=== PATIENT | male | born 1985 | race Caucasian/White ===

== ENCOUNTER 2019-06-27 22:31 | Emergency (ER) | payer MEDICAID ==
[~2019-06-27] VITALS: Ht 182.9 cm; Wt 95.3 kg
[2019-06-27 22:39] VITALS: Ht 182.9 cm; Wt 95.3 kg
[2019-06-27] MEDS ORDERED: XANAX1 MG PO (22:41)
[2019-06-27] MEDS ORDERED: BUPRENORPHIN-N1 EACH SL (22:48)
[2019-06-27 22:49] LABS: APPEARANCE CLEAR (CLEAR); BILIRUBIN NEGATIVE (NEGATIVE); COLOR YELLOW (YELLOW); GLUCOSE NEGATIVE (NEGATIVE); KETONE NEGATIVE (NEGATIVE); NITRITE NEGATIVE (NEGATIVE); PROTEIN NEGATIVE (NEGATIVE); UROBILINOGEN NORMAL (NORMAL)
[2019-06-27] MEDS ORDERED: CYMBALTA30 MG PO (22:49)
[2019-06-27] MEDS ORDERED: RISPERDAL4 MG PO (22:49)
[2019-06-27] MEDS ORDERED: DEPAKOTE ER250 MG PO (22:49)
--- NOTE | 2019-06-27 22:58 | NUR ---
DR. JONES NOTIFIED AND SITTER ORDERED. SITTER AT BEDSIDE. NOTIFIED CHARGE NURSE AND ATTENDING IN REGARDS TO ASSESSMENT FINDINGS. RESOURCES GIVE TO PT AND SAFETY PLAN INITIATED.
[2019-06-27 23:00] LABS: UDS - AMPHET POSITIVE QUAL (NEGATIVE); UDS - BARB NEGATIVE QUAL (NEGATIVE); UDS - BENZO POSITIVE QUAL (NEGATIVE); UDS - COCAINE NEGATIVE QUAL (NEGATIVE); UDS - OPIATE NEGATIVE QUAL (NEGATIVE); UDS - PCP NEGATIVE QUAL (NEGATIVE); UDS - THC POSITIVE QUAL (NEGATIVE)
[2019-06-27 23:07] LABS: BASOPHILS 0.7 % (0-2); EOSINOPHILS 9.4 % (0-7); HEMATOCRIT 43.7 % (42.0-54.0); HEMOGLOBIN 14.8 g/dL (13.5-17.5); IMMATURE GRANULOCYTES 0.3 % (0-5); LYMPHOCYTES 32.6 % (15-50); MCH 31.6 pg (26.0-34.0); MCHC 33.9 g/dL (31.0-37.0); MCV 93.4 fL (80.0-100.0); MEAN PLATELET VOLUME 11.1 fL (7.4-10.4); MONOCYTES 10.4 % (2-11); NEUTROPHILS 46.6 % (40-80); PLATELET COUNT 244 10x3/uL (130-400); RBC 4.68 10x6/uL (4.20-6.10); RDW 12.9 % (11.5-14.5); WBC 9.1 10x3/uL (4.8-10.8)
[2019-06-27 23:13] LABS: CALC OSMOLALITY 285 mosm/kg (275-300); CALCIUM 9.1 mg/dL (8.5-10.1); CARBON DIOXIDE 29.9 mmol/L (21.0-32.0); CHLORIDE - SERUM 105 mmol/L (98-107); CREATININE - SERUM 0.9 mg/dL (0.6-1.3); GLUCOSE 101 mg/dL (74-106); POTASSIUM - SERUM 3.4 mmol/L (3.5-5.1); SODIUM 143 mmol/L (136-145); UREA NITROGEN 15 mg/dL (7-18); eGFR NON AFRICAN AMERICAN > 90 mL/min (90-120)
[2019-06-27 23:19] LABS: ALBUMIN 3.7 g/dL (3.4-5.0); ALKALINE PHOSPHATASE 112 U/L (46-116); ALT (SGPT) 76 U/L (10-68); BILIRUBIN - TOTAL 0.44 mg/dL (0.2-1.3); MAGNESIUM - SERUM 1.9 mg/dL (1.8-2.4); PROTEIN - SERUM 7.3 g/dL (6.4-8.2)
[2019-06-28 03:54] VITALS: BP 117/78
== END 2019-06-28 14:40 ==
LOC: D.ER 22:31
PROVIDERS: Family Medicine
DX: R45.851 Suicidal ideations (principal); F41.8 Other specified anxiety disorders; R45.850 Homicidal ideations

== ENCOUNTER 2019-07-22 11:39 | Emergency (ER) | payer MEDICAID ==
[~2019-07-22] VITALS: Ht 182.9 cm; Wt 111.4 kg
[~2019-07-22 11:39] MED LIST: BUPRENORPHIN-N1 EACH SL; CYMBALTA30 MG PO; DEPAKOTE ER250 MG PO; RISPERDAL4 MG PO; XANAX1 MG PO
[2019-07-22 11:58] VITALS: BP 145/91; Ht 182.9 cm; Wt 111.4 kg
== END 2019-07-22 13:36 | disposition home or self-care (01) ==
LOC: D.ER 11:39
DX: R51 Headache (principal); H53.8 Other visual disturbances

== ENCOUNTER 2019-11-20 23:56 | Emergency (ER) | payer MEDICAID ==
[~2019-11-20] VITALS: Ht 182.9 cm; Wt 97.5 kg
[2019-11-21] MEDS ORDERED: LYRICA150 MG (00:01)
[2019-11-21] MEDS ORDERED: LITHIUM CARBON300 MG (00:01)
[2019-11-21] MEDS ORDERED: NEURONTIN800 MG (00:02)
[2019-11-21] MEDS ORDERED: XANAX1 MG PO (00:02)
[2019-11-21] MEDS ORDERED: LITHIUM CARBON300 MG PO (00:02)
[2019-11-21] MEDS ORDERED: AMBIEN10 MG PO (00:03)
[2019-11-21 00:05] VITALS: BP 134/83; Ht 182.9 cm; Wt 97.5 kg
[2019-11-21 00:25] LABS: BILIRUBIN NEGATIVE (NEGATIVE); GLUCOSE NEGATIVE (NEGATIVE); KETONE NEGATIVE (NEGATIVE); NITRITE NEGATIVE (NEGATIVE); SPECIFIC GRAVITY 1.015 (1.005-1.020); UROBILINOGEN NORMAL (NORMAL)
[2019-11-21 00:32] LABS: UDS - AMPHET NEGATIVE QUAL (NEGATIVE); UDS - BARB NEGATIVE QUAL (NEGATIVE); UDS - BENZO POSITIVE QUAL (NEGATIVE); UDS - COCAINE NEGATIVE QUAL (NEGATIVE); UDS - OPIATE NEGATIVE QUAL (NEGATIVE); UDS - PCP NEGATIVE QUAL (NEGATIVE); UDS - THC NEGATIVE QUAL (NEGATIVE)
[2019-11-21 00:33] LABS: HEMOGLOBIN 15.9 g/dL (13.5-17.5); LYMPHOCYTES 32.2 % (15-50); MCH 29.9 pg (26.0-34.0); MCHC 33.1 g/dL (31.0-37.0); MCV 90.4 fL (80.0-100.0); MEAN PLATELET VOLUME 11.6 fL (7.4-10.4); NEUTROPHILS 59.3 % (40-80); RBC 5.31 10x6/uL (4.20-6.10); WBC 10.6 10x3/uL (4.8-10.8)
[2019-11-21 00:34] LABS: PLATELET COUNT 186 10x3/uL (130-400)
[2019-11-21 00:44] LABS: CALC OSMOLALITY 289 mosm/kg (275-300); CALCIUM 9.1 mg/dL (8.5-10.1); CARBON DIOXIDE 26.9 mmol/L (21.0-32.0); CHLORIDE - SERUM 107 mmol/L (98-107); GLUCOSE 117 mg/dL (74-106); POTASSIUM - SERUM 3.6 mmol/L (3.5-5.1); SODIUM 144 mmol/L (136-145); UREA NITROGEN 18 mg/dL (7-18); eGFR NON AFRICAN AMERICAN 90 mL/min (90-120)
[2019-11-21 00:48] LABS: SALICYLATES 1.9 mg/dL (2.8-20.0)
[2019-11-21 00:49] LABS: ALBUMIN 3.9 g/dL (3.4-5.0); ALKALINE PHOSPHATASE 117 U/L (30-120); ALT (SGPT) 50 U/L (10-68); BILIRUBIN - TOTAL 0.24 mg/dL (0.2-1.3); LITHIUM 0.11 mmol/L (0.60-1.20); MAGNESIUM - SERUM 1.9 mg/dL (1.8-2.4); PROTEIN - SERUM 7.2 g/dL (6.4-8.2)
--- NOTE | 2019-11-21 00:55 | NUR ---
PT STATES HE IS NOT CURRENTLY SUICIDAL BUT SINCE HIS ANXIETY MEDICATIONS HAVE BEEN STOLEN HE ANTICIPATES THAT HE MAY BECOME SUICIDAL. CHARGE NURSE AND ATTENDING NOTIFIED OF ASSESSMENT RESULTS. DR. JONES NOTIFIED OF BEHAVIOR AND ASSESSMENT RESULTS. PT IS A LOW RISK PER DR. JONES. DR. JONES STATED TO GIVE PT RESOURCES AT TIME OF DISCHARGE. NO FURTHER ORDERS AT THIS TIME. RESOURCES REVIEWED WITH PT AND HE VERBALIZED UNDERSTANDING.
== END 2019-11-21 01:23 | disposition home or self-care (01) ==
LOC: D.ER 23:56
PROVIDERS: Emergency Medicine
DX: Z76.0 Encounter for issue of repeat prescription (principal); Z76.5 Malingerer [conscious simulation]

== ENCOUNTER 2019-11-22 23:00 | Emergency (ER) | payer MEDICAID ==
[~2019-11-22] VITALS: Ht 182.9 cm; Wt 71.8 kg
[~2019-11-22 23:00] MED LIST changes: +AMBIEN10 MG PO; +LITHIUM CARBON300 MG; +LITHIUM CARBON300 MG PO; +LYRICA150 MG; +NEURONTIN800 MG
[2019-11-22 23:16] VITALS: Ht 182.9 cm; Wt 71.8 kg
[2019-11-23 01:00] LABS: BASOPHILS 0.7 % (0-2); EOSINOPHILS 10.1 % (0-7); HEMOGLOBIN 15.3 g/dL (13.5-17.5); IMMATURE GRANULOCYTES 0.5 % (0-5); LYMPHOCYTES 30.2 % (15-50); MCH 29.8 pg (26.0-34.0); MCHC 32.6 g/dL (31.0-37.0); MCV 91.6 fL (80.0-100.0); MEAN PLATELET VOLUME 11.5 fL (7.4-10.4); MONOCYTES 11.5 % (2-11); PLATELET COUNT 176 10x3/uL (130-400); RBC 5.13 10x6/uL (4.20-6.10); RDW 12.6 % (11.5-14.5); WBC 10.5 10x3/uL (4.8-10.8)
[2019-11-23 01:14] LABS: CALC OSMOLALITY 280 mosm/kg (275-300); CALCIUM 8.6 mg/dL (8.5-10.1); CARBON DIOXIDE 28.7 mmol/L (21.0-32.0); CHLORIDE - SERUM 105 mmol/L (98-107); CREATININE - SERUM 0.9 mg/dL (0.6-1.3); GLUCOSE 123 mg/dL (74-106); POTASSIUM - SERUM 3.4 mmol/L (3.5-5.1); SODIUM 140 mmol/L (136-145); UREA NITROGEN 14 mg/dL (7-18); eGFR NON AFRICAN AMERICAN > 90 mL/min (90-120)
[2019-11-23 01:20] LABS: ALBUMIN 3.7 g/dL (3.4-5.0); ALKALINE PHOSPHATASE 119 U/L (30-120); ALT (SGPT) 48 U/L (10-68); BILIRUBIN - TOTAL 0.42 mg/dL (0.2-1.3); C-REACTIVE PROTEIN 4.9 mg/dL (0.0-0.9); URIC ACID 6.6 mg/dL (2.6-7.2)
[2019-11-23] MEDS ORDERED: TYLENOL #4 W/CO1 TAB PO (01:46)
[2019-11-23 01:56] VITALS: BP 103/67
== END 2019-11-23 01:59 | disposition home or self-care (01) ==
LOC: D.ER 23:00
PROVIDERS: Family Medicine
DX: L03.115 Cellulitis of right lower limb (principal); R21 Rash and other nonspecific skin eruption; M79.89 Other specified soft tissue disorders

== ENCOUNTER 2019-11-25 17:44 | Emergency (ER) | payer MEDICAID ==
[~2019-11-25] VITALS: Ht 182.9 cm; Wt 117.3 kg
[~2019-11-25 17:44] MED LIST changes: +TYLENOL #4 W/CO1 TAB PO
[2019-11-25 18:12] VITALS: Ht 182.9 cm; Wt 117.3 kg
[2019-11-25 19:16] LABS: BASOPHILS 0.6 % (0-2); EOSINOPHILS 7.5 % (0-7); HEMATOCRIT 47.5 % (42.0-54.0); HEMOGLOBIN 15.4 g/dL (13.5-17.5); IMMATURE GRANULOCYTES 0.3 % (0-5); LYMPHOCYTES 33.3 % (15-50); MCHC 32.4 g/dL (31.0-37.0); MCV 92.4 fL (80.0-100.0); MEAN PLATELET VOLUME 11.7 fL (7.4-10.4); NEUTROPHILS 50.3 % (40-80); PLATELET COUNT 194 10x3/uL (130-400); RBC 5.14 10x6/uL (4.20-6.10); RDW 12.5 % (11.5-14.5)
[2019-11-25 19:23] LABS: CALC OSMOLALITY 283 mosm/kg (275-300); CARBON DIOXIDE 28.3 mmol/L (21.0-32.0); CHLORIDE - SERUM 105 mmol/L (98-107); CREATININE - SERUM 1.1 mg/dL (0.6-1.3); GLUCOSE 105 mg/dL (74-106); POTASSIUM - SERUM 4.1 mmol/L (3.5-5.1); SODIUM 143 mmol/L (136-145); UREA NITROGEN 10 mg/dL (7-18); eGFR NON AFRICAN AMERICAN 81 mL/min (90-120)
[2019-11-25 19:29] LABS: ALBUMIN 3.8 g/dL (3.4-5.0); ALKALINE PHOSPHATASE 119 U/L (30-120); ALT (SGPT) 56 U/L (10-68); BILIRUBIN - TOTAL 0.26 mg/dL (0.2-1.3); PROTEIN - SERUM 7.1 g/dL (6.4-8.2)
[2019-11-25] MEDS ORDERED: ULTRAM50 MG PO (19:56)
[2019-11-25 20:10] VITALS: BP 125/88
== END 2019-11-25 20:11 | disposition home or self-care (01) ==
LOC: D.ER 17:44
PROVIDERS: Emergency Medicine
DX: L03.115 Cellulitis of right lower limb (principal); M79.661 Pain in right lower leg

== ENCOUNTER 2019-12-24 13:20 | Emergency (ER) | payer MEDICAID ==
[~2019-12-24] VITALS: Ht 182.9 cm; Wt 113.6 kg
[~2019-12-24 13:20] MED LIST changes: +ULTRAM50 MG PO
[2019-12-24 13:27] VITALS: Ht 182.9 cm; Wt 113.6 kg
[2019-12-24] MEDS ORDERED: NEURONTIN800 MG PO (13:28)
[2019-12-24] MEDS ORDERED: AMBIEN10 MG PO (13:29)
[2019-12-24] MEDS ORDERED: BUPRENORPHINE HC8 MG SL (13:29)
[2019-12-24] MEDS ORDERED: DEPAKOTE (13:30)
[2019-12-24 13:59] LABS: BASOPHILS 0.8 % (0-2); EOSINOPHILS 4.4 % (0-7); HEMATOCRIT 47.6 % (42.0-54.0); HEMOGLOBIN 15.8 g/dL (13.5-17.5); IMMATURE GRANULOCYTES 0.3 % (0-5); LYMPHOCYTES 28.2 % (15-50); MCH 30.2 pg (26.0-34.0); MCHC 33.2 g/dL (31.0-37.0); MCV 90.8 fL (80.0-100.0); MEAN PLATELET VOLUME 11.6 fL (7.4-10.4); MONOCYTES 9.7 % (2-11); NEUTROPHILS 56.6 % (40-80); PLATELET COUNT 218 10x3/uL (130-400); RBC 5.24 10x6/uL (4.20-6.10); RDW 13.4 % (11.5-14.5); WBC 10.9 10x3/uL (4.8-10.8)
[2019-12-24 14:03] LABS: CALC OSMOLALITY 277 mosm/kg (275-300); CALCIUM 9.4 mg/dL (8.5-10.1); CHLORIDE - SERUM 104 mmol/L (98-107); CREATININE - SERUM 1.1 mg/dL (0.6-1.3); GLUCOSE 99 mg/dL (74-106); POTASSIUM - SERUM 3.5 mmol/L (3.5-5.1); SODIUM 140 mmol/L (136-145); UREA NITROGEN 10 mg/dL (7-18); eGFR NON AFRICAN AMERICAN 81 mL/min (90-120)
[2019-12-24 14:08] LABS: ALBUMIN 4.2 g/dL (3.4-5.0); ALKALINE PHOSPHATASE 117 U/L (30-120); ALT (SGPT) 45 U/L (10-68); MAGNESIUM - SERUM 1.9 mg/dL (1.8-2.4); PROTEIN - SERUM 7.7 g/dL (6.4-8.2)
--- NOTE | 2019-12-24 14:41 | NUR ---
According to the suicide assessment the patient scores high for suicide risk and he will need 1:1 observation. Provide suicide resource flyer and a safety plan.
[2019-12-24 14:47] LABS: SPECIFIC GRAVITY 1.015 (1.005-1.020)
[2019-12-24 14:48] LABS: BILIRUBIN NEGATIVE (NEGATIVE); GLUCOSE NEGATIVE (NEGATIVE); KETONE NEGATIVE (NEGATIVE); NITRITE NEGATIVE (NEGATIVE); UROBILINOGEN 8 mg/dL (NORMAL)
[2019-12-24 14:52] LABS: AMORPHOUS SEDIMENT >1+ /lpf (NONE SEEN); BACTERIA FEW /hpf (NEGATIVE); EPITHELIAL CELLS NSEEN /hpf (0-5); RED CELLS - URINE NONE SEEN /hpf (0-5); WHITE CELLS - URINE NSEEN /hpf (NEGATIVE)
[2019-12-24 14:56] LABS: UDS - AMPHET POSITIVE QUAL (NEGATIVE); UDS - BARB NEGATIVE QUAL (NEGATIVE); UDS - BENZO NEGATIVE QUAL (NEGATIVE); UDS - COCAINE NEGATIVE QUAL (NEGATIVE); UDS - OPIATE NEGATIVE QUAL (NEGATIVE); UDS - PCP NEGATIVE QUAL (NEGATIVE); UDS - THC NEGATIVE QUAL (NEGATIVE)
[2019-12-24 19:54] VITALS: BP 143/99
== END 2019-12-24 21:03 ==
LOC: D.ER 13:20
PROVIDERS: Emergency Medicine
DX: F32.9 Major depressive disorder, single episode, unspecified (principal); Z91.19 Patient's noncompliance with other medical treatment and regimen; R45.851 Suicidal ideations; F15.10 Other stimulant abuse, uncomplicated